=== PATIENT | male | born 1950 | race Caucasian/White ===

== ENCOUNTER → 2016-08-27 | Outpatient (CLI) | payer MEDICARE ==
[~2016-08-27] MED LIST: /CELE20CA OR; /TAMS4CA OR; /WARF25TA OR; ADVAIR; LIPITOR PO; LOVAZA PO; PERC5TAB8 OR; PERC7.5T8 OR; PROLIXIN PO; TYL325 RE; ZOLO100T OR; ZYPR10TA OR; [UNRECOGNIZED DRUG - OTHER] PO
--- NOTE | 2016-08-27 10:32 | REP ---
Clinical: Hyperlipidemia . Comparison: 07/31/2014 . Technique: PA and lateral. Findings: The mediastinum and cardiac silhouette are normal. The lung polanco are clear and without acute consolidation, effusion, or pneumothorax. The skeletal structures are intact and normal. Impression: 1. No acute cardiopulmonary process. Signed by Ruslan Cline MD 08/27/2016 10:23 A
[2016-08-27 10:40] LABS: BASO # 0.1 K/mm3 (0.0-0.2); BASO % 1.3 % (0.0-1.0); EOS # 0.2 K/mm3 (0.0-0.50); EOS % 3.4 % (0.0-3.0); LYMPH # 1.6 K/mm3 (1.5-4.5); LYMPH % 26.2 % (24.0-44.0); MEAN CORPUSCULAR HGB CONC 34.5 g/dl (32.0-36.5); MONO # 0.4 K/mm3 (0.0-0.8); NEUTROPHILS # 3.6 K/mm3 (1.8-7.7); NEUTROPHILS % 61.2 % (36.0-66.0); RED CELL DISTRIBUTION WIDTH 13.7 % (11.5-14.5); WHITE BLOOD COUNT 5.8 K/mm3 (4.0-10.0)
[2016-08-27 11:27] LABS: ALBUMIN 3.9 GM/DL (3.2-5.2); ALBUMIN/GLOBULIN RATIO 1.15 (1.00-1.93); ALKALINE PHOSPHATASE 82 U/L (45-117); ALT/SGPT 51 U/L (12-78); ANION GAP 6 MEQ/L (8-16); AST/SGOT 31 U/L (15-37); BILIRUBIN,TOTAL 0.6 MG/DL (0.2-1.0); BLOOD UREA NITROGEN 10 MG/DL (7-18); CARBON DIOXIDE LEVEL 31 MEQ/L (21-32); CHLORIDE LEVEL 105 MEQ/L (98-107); CHOLESTEROL LEVEL 135 MG/DL (<200); CREATININE FOR GFR 1.07 MG/DL (0.70-1.30); GLOMERULAR FILTRATION RATE > 60.0 (>49); GLUCOSE, FASTING 116 MG/DL (80-110); POTASSIUM SERUM 4.1 MEQ/L (3.5-5.1); SODIUM LEVEL 142 MEQ/L (136-145); TOTAL PROTEIN 7.3 GM/DL (6.4-8.2); TRIGLYCERIDES LEVEL 147 MG/DL (<150)
== END ==
LOC: M LAB 09:56
PROVIDERS: ATTEND Physician Assistant Medical
DX: E78.2 Mixed hyperlipidemia (principal); F20.9 Schizophrenia, unspecified; E55.9 Vitamin D deficiency, unspecified; J44.9 Chronic obstructive pulmonary disease, unspecified

== ENCOUNTER → 2016-12-16 | Outpatient (CLI) | payer MEDICARE ==
[2016-12-16 14:36] LABS: ALBUMIN 3.9 GM/DL (3.2-5.2); ALBUMIN/GLOBULIN RATIO 1.08 (1.00-1.93); ALKALINE PHOSPHATASE 82 U/L (45-117); ALT/SGPT 65 U/L (12-78); ANION GAP 9 MEQ/L (8-16); AST/SGOT 34 U/L (15-37); BILIRUBIN,TOTAL 0.6 MG/DL (0.2-1.0); BLOOD UREA NITROGEN 8 MG/DL (7-18); CALCIUM LEVEL 9.4 MG/DL (8.8-10.2); CARBON DIOXIDE LEVEL 30 MEQ/L (21-32); CHLORIDE LEVEL 101 MEQ/L (98-107); CREATININE FOR GFR 1.11 MG/DL (0.70-1.30); GLOMERULAR FILTRATION RATE > 60.0 (>49); GLUCOSE, FASTING 96 MG/DL (80-110); POTASSIUM SERUM 4.1 MEQ/L (3.5-5.1); SODIUM LEVEL 140 MEQ/L (136-145); TOTAL PROTEIN 7.5 GM/DL (6.4-8.2)
== END ==
LOC: M WUC 10:32
PROVIDERS: ATTEND Physician Assistant Medical
DX: R73.9 Hyperglycemia, unspecified (principal)

== ENCOUNTER → 2017-04-14 | Outpatient (CLI) | payer OTHER, MEDICARE ==
[2017-04-14 14:28] LABS: ALBUMIN 4.1 GM/DL (3.2-5.2); ALBUMIN/GLOBULIN RATIO 1.21 (1.00-1.93); ALKALINE PHOSPHATASE 87 U/L (45-117); ALT/SGPT 76 U/L (12-78); ANION GAP 10 MEQ/L (8-16); AST/SGOT 42 U/L (7-37); BILIRUBIN,TOTAL 0.8 MG/DL (0.2-1.0); BLOOD UREA NITROGEN 9 MG/DL (7-18); CALCIUM LEVEL 9.1 MG/DL (8.8-10.2); CARBON DIOXIDE LEVEL 27 MEQ/L (21-32); CHLORIDE LEVEL 104 MEQ/L (98-107); CHOLESTEROL LEVEL 132 MG/DL (<200); CHOLESTEROL RISK RATIO 3.567 (<5); CREATININE FOR GFR 1.09 MG/DL (0.70-1.30); GLOMERULAR FILTRATION RATE > 60.0 (>49); GLUCOSE, FASTING 114 MG/DL (70-100); HDL CHOLESTEROL 37 MG/DL (>40); LDL CHOLESTEROL 64.6 MG/DL (<100); NON-HDL-C 95 MG/DL; POTASSIUM SERUM 4.3 MEQ/L (3.5-5.1); SODIUM LEVEL 141 MEQ/L (136-145); TOTAL PROTEIN 7.5 GM/DL (6.4-8.2); TRIGLYCERIDES LEVEL 152 MG/DL (<150)
== END ==
LOC: M LAB 13:00
DX: R73.9 Hyperglycemia, unspecified (principal); Z79.899 Other long term (current) drug therapy
CPT/HCPCS: 80053

== ENCOUNTER → 2017-04-15 | Outpatient (CLI) | payer OTHER ==
[2017-04-15 12:09] LABS: BASO # 0.1 10^3/uL (0.0-0.2); BASO % 1.1 % (0.0-1.0); EOS # 0.2 10^3/uL (0.0-0.50); EOS % 3.2 % (0.0-3.0); HEMATOCRIT 45.6 % (42.0-52.0); HEMOGLOBIN 15.4 g/dl (14.0-18.0); IMMATURE GRANULOCYTE % 0.4 % (0-3.0); LYMPH # 1.8 10^3/uL (1.5-4.5); LYMPH % 31.4 % (24.0-44.0); MEAN CORPUSCULAR HGB CONC 33.8 g/dl (32.0-36.5); MEAN CORPUSCULAR VOLUME 88.9 fl (80.0-96.0); MONO # 0.6 10^3/uL (0.0-0.8); MONO % 10.8 % (0.0-5.0); NEUTROPHILS % 53.1 % (36.0-66.0); PLATELET COUNT, AUTOMATED 186 10^3/uL (150-450); RED BLOOD COUNT 5.13 10^6/uL (4.30-6.10); RED CELL DISTRIBUTION WIDTH 13.4 % (11.5-14.5); WHITE BLOOD COUNT 5.6 10^3/uL (4.0-10.0)
[2017-04-15 14:31] LABS: ESTIMATED AVERAGE GLUCOSE 126 MG/DL (60-110)
== END ==
LOC: M LAB 11:00
DX: R73.9 Hyperglycemia, unspecified (principal)
CPT/HCPCS: 83036

== ENCOUNTER → 2017-06-08 | Outpatient (CLI) | payer OTHER ==
[2017-06-08 16:23] LABS: BASO # 0.1 10^3/uL (0.0-0.2); BASO % 1.1 % (0.0-1.0); EOS # 0.3 10^3/uL (0.0-0.50); EOS % 4.7 % (0.0-3.0); HEMATOCRIT 48.5 % (42.0-52.0); HEMOGLOBIN 16.6 g/dl (13.5-17.5); IMMATURE GRANULOCYTE % 0.3 % (0-3.0); LYMPH # 1.8 10^3/uL (1.5-4.5); LYMPH % 24.5 % (24.0-44.0); MEAN CORPUSCULAR HEMOGLOBIN 30.2 pg (27.0-33.0); MEAN CORPUSCULAR HGB CONC 34.2 g/dl (32.0-36.5); MEAN CORPUSCULAR VOLUME 88.2 fl (80.0-96.0); MONO # 0.7 10^3/uL (0.0-0.8); MONO % 8.9 % (0.0-5.0); NEUTROPHILS # 4.4 10^3/uL (1.8-7.7); NEUTROPHILS % 60.5 % (36.0-66.0); PLATELET COUNT, AUTOMATED 193 10^3/uL (150-450); RED CELL DISTRIBUTION WIDTH 13.5 % (11.5-14.5); WHITE BLOOD COUNT 7.3 10^3/uL (4.0-10.0)
[2017-06-08 17:16] LABS: ALBUMIN 4.2 GM/DL (3.2-5.2); ALBUMIN/GLOBULIN RATIO 1.08 (1.00-1.93); ALKALINE PHOSPHATASE 96 U/L (45-117); ALT/SGPT 71 U/L (12-78); AMYLASE 34 U/L (25-115); ANION GAP 8 MEQ/L (8-16); AST/SGOT 50 U/L (7-37); BILIRUBIN,TOTAL 0.7 MG/DL (0.2-1.0); BLOOD UREA NITROGEN 7 MG/DL (7-18); CALCIUM LEVEL 9.3 MG/DL (8.8-10.2); CARBON DIOXIDE LEVEL 25 MEQ/L (21-32); CHLORIDE LEVEL 107 MEQ/L (98-107); CREATININE FOR GFR 1.11 MG/DL (0.70-1.30); GLOMERULAR FILTRATION RATE > 60.0 (>49); GLUCOSE, FASTING 98 MG/DL (70-100); LIPASE 145 U/L (73-393); POTASSIUM SERUM 4.4 MEQ/L (3.5-5.1); SODIUM LEVEL 140 MEQ/L (136-145); TOTAL PROTEIN 8.1 GM/DL (6.4-8.2)
== END ==
LOC: M WUC 15:34
DX: R10.11 Right upper quadrant pain (principal)
CPT/HCPCS: 82150

== ENCOUNTER 2017-06-26 09:17 | Day surgery (SDC) | payer OTHER ==
[2017-06-26] MEDS: NS 1,000 ML IV (10:15)
[2017-06-26] MEDS ORDERED: PROPOFOL 200 MG/20 ML VIAL As Ordered ×2 (10:54→11:04)
== END 2017-06-26 11:38 | disposition home or self-care (01) ==
LOC: M OPP 09:17
DX: Z12.11 Encounter for screening for malignant neoplasm of colon (principal); Z86.010 Personal history of colon polyps; Z80.0 Family history of malignant neoplasm of digestive organs; D12.2 Benign neoplasm of ascending colon; D12.5 Benign neoplasm of sigmoid colon; K62.1 Rectal polyp; K57.30 Diverticulosis of large intestine without perforation or abscess without bleeding; K64.8 Other hemorrhoids; E78.5 Hyperlipidemia, unspecified; K21.9 Gastro-esophageal reflux disease without esophagitis; M19.90 Unspecified osteoarthritis, unspecified site; F32.9 Major depressive disorder, single episode, unspecified; J45.909 Unspecified asthma, uncomplicated; J44.9 Chronic obstructive pulmonary disease, unspecified; G47.30 Sleep apnea, unspecified; R06.83 Snoring; Z96.641 Presence of right artificial hip joint; Z79.899 Other long term (current) drug therapy
CPT/HCPCS: 45385

== ENCOUNTER → 2018-05-05 | Outpatient (REF) | payer MEDICARE ==
[~2018-05-05] MED LIST changes: +ADV250INH INH; +ATOR1TAB19; +BENZ-52; +COMBAER6; +FLUP10TA; +OLAN10TA2; +SERT-138; +VITA-112 PO
[2018-05-05 13:20] LABS: BASO # 0.1 10^3/uL (0.0-0.2); BASO % 1.3 % (0.0-1.0); EOS # 0.4 10^3/uL (0.0-0.50); EOS % 5.9 % (0.0-3.0); HEMATOCRIT 44.4 % (42.0-52.0); HEMOGLOBIN 15.4 g/dl (13.5-17.5); LYMPH # 1.7 10^3/uL (1.5-4.5); LYMPH % 23.7 % (24.0-44.0); MEAN CORPUSCULAR HEMOGLOBIN 30.5 pg (27.0-33.0); MEAN CORPUSCULAR HGB CONC 34.7 g/dl (32.0-36.5); MEAN CORPUSCULAR VOLUME 87.9 fl (80.0-96.0); MONO # 0.5 10^3/uL (0.0-0.8); MONO % 6.8 % (0.0-5.0); NEUTROPHILS # 4.3 10^3/uL (1.8-7.7); NEUTROPHILS % 62.2 % (36.0-66.0); PLATELET COUNT, AUTOMATED 197 10^3/uL (150-450); RED BLOOD COUNT 5.05 10^6/uL (4.30-6.10)
[2018-05-05 13:41] LABS: HEMOGLOBIN A1c 5.8 %
[2018-05-05 13:47] LABS: ALT/SGPT 62 U/L (12-78); BILIRUBIN,TOTAL 0.7 MG/DL (0.2-1.0); BLOOD UREA NITROGEN 12 MG/DL (7-18); CALCIUM LEVEL 8.9 MG/DL (8.8-10.2); CARBON DIOXIDE LEVEL 28 MEQ/L (21-32); CHLORIDE LEVEL 105 MEQ/L (98-107); CHOLESTEROL LEVEL 138 MG/DL (<200); CHOLESTEROL RISK RATIO 4.058 (<5); GLOMERULAR FILTRATION RATE > 60.0 (>49); GLUCOSE, FASTING 126 MG/DL (70-100); HDL CHOLESTEROL 34 MG/DL (>40); LDL CHOLESTEROL 69 MG/DL (<100); NON-HDL-C 104 MG/DL; NT-PRO BNP 15 PG/ML (<125); POTASSIUM SERUM 4.1 MEQ/L (3.5-5.1); SODIUM LEVEL 139 MEQ/L (136-145); TOTAL PROTEIN 7.3 GM/DL (6.4-8.2); TRIGLYCERIDES LEVEL 177 MG/DL (<150)
== END ==
LOC: M SFHCPLAZ 11:36
PROVIDERS: ATTEND Family Medicine
DX: R06.09 Other forms of dyspnea (principal); F25.9 Schizoaffective disorder, unspecified; Z13.1 Encounter for screening for diabetes mellitus; E78.5 Hyperlipidemia, unspecified

== ENCOUNTER → 2018-08-23 | Outpatient (CLI) | payer MEDICARE ==
[~2018-08-23] MED LIST changes: -/CELE20CA OR; -/TAMS4CA OR; -/WARF25TA OR; +CELE1CAP4 OR; +COUM1TAB18 OR; +FLOM0.4C39 OR
--- NOTE | 2018-08-24 03:59 | REP ---
REASON: History of bronchitis. COMPARISON: Multiple, the latest 06/08/2017. Left CP angle blunting has developed since the last exam. There are a few mild bibasilar curvilinear opacities which have also developed since the last exam. The heart is not enlarged. The imaged osseous structures stable and intact. IMPRESSION: 1. Left CP angle blunting. Small pleural effusion is suspected. 2. Bibasilar opacities as described above, suggestive of subsegmental atelectatic changes; however, basilar pneumonia particularly on the left cannot be ruled out. Followup is suggested. Electronically Signed by Cirilo Sotelo DO 08/24/2018 10:55 A
== END ==
LOC: M SMT 14:25
PROVIDERS: ATTEND Physician Assistant Medical
DX: R91.8 Other nonspecific abnormal finding of lung field (principal); J40 Bronchitis, not specified as acute or chronic

== ENCOUNTER → 2018-08-23 | Outpatient (REF) | payer MEDICARE ==
[2018-08-23 17:06] LABS: ALBUMIN 3.8 GM/DL (3.2-5.2); ALT/SGPT 58 U/L (12-78); BASO # 0.1 10^3/uL (0.0-0.2); BASO % 1.7 % (0.0-1.0); BILIRUBIN,TOTAL 0.6 MG/DL (0.2-1.0); BLOOD UREA NITROGEN 9 MG/DL (7-18); CALCIUM LEVEL 8.7 MG/DL (8.8-10.2); CARBON DIOXIDE LEVEL 25 MEQ/L (21-32); CHLORIDE LEVEL 105 MEQ/L (98-107); CREATININE FOR GFR 0.95 MG/DL (0.70-1.30); EOS # 0.3 10^3/uL (0.0-0.50); EOS % 4.8 % (0.0-3.0); GLOMERULAR FILTRATION RATE > 60.0 (>49); GLUCOSE, FASTING 115 MG/DL (70-100); HEMATOCRIT 44.2 % (42.0-52.0); HEMOGLOBIN 15.1 g/dl (13.5-17.5); LYMPH # 1.9 10^3/uL (1.5-4.5); LYMPH % 27.5 % (24.0-44.0); MEAN CORPUSCULAR HEMOGLOBIN 30.1 pg (27.0-33.0); MEAN CORPUSCULAR HGB CONC 34.2 g/dl (32.0-36.5); MONO # 0.7 10^3/uL (0.0-0.8); MONO % 9.5 % (0.0-5.0); NEUTROPHILS % 56.4 % (36.0-66.0); PLATELET COUNT, AUTOMATED 221 10^3/uL (150-450); POTASSIUM SERUM 4.1 MEQ/L (3.5-5.1); RED BLOOD COUNT 5.02 10^6/uL (4.30-6.10); SODIUM LEVEL 139 MEQ/L (136-145); TOTAL PROTEIN 7.4 GM/DL (6.4-8.2); WHITE BLOOD COUNT 7.1 10^3/uL (4.0-10.0)
== END ==
LOC: M SFHCPLAZ 13:38
PROVIDERS: ATTEND Physician Assistant Medical
DX: J40 Bronchitis, not specified as acute or chronic (principal)

== ENCOUNTER 2018-08-28 18:12 | Emergency (ER) | payer MEDICARE ==
[~2018-08-28] VITALS: Ht 170.2 cm; Wt 93.6 kg
[2018-08-28 19:25] LABS: BASO # 0.1 10^3/uL (0.0-0.2); BASO % 0.8 % (0.0-1.0); EOS # 0.3 10^3/uL (0.0-0.50); EOS % 3.9 % (0.0-3.0); HEMATOCRIT 42.5 % (42.0-52.0); HEMOGLOBIN 15.1 g/dl (13.5-17.5); LYMPH # 2.2 10^3/uL (1.5-4.5); MEAN CORPUSCULAR HEMOGLOBIN 31.6 pg (27.0-33.0); MEAN CORPUSCULAR HGB CONC 35.5 g/dl (32.0-36.5); MEAN CORPUSCULAR VOLUME 88.9 fl (80.0-96.0); MONO # 0.6 10^3/uL (0.0-0.8); MONO % 7.9 % (0.0-5.0); NEUTROPHILS # 4.5 10^3/uL (1.8-7.7); NEUTROPHILS % 58.3 % (36.0-66.0); PLATELET COUNT, AUTOMATED 175 10^3/uL (150-450); RED BLOOD COUNT 4.78 10^6/uL (4.30-6.10); WHITE BLOOD COUNT 7.7 10^3/uL (4.0-10.0)
--- NOTE | 2018-08-28 19:49 | REP ---
Clinical: Cough and dyspnea . Comparison: 08/23/2018 . Technique: PA and lateral. Findings: The mediastinum and cardiac silhouette are normal. The lung polanco are clear and without acute consolidation, effusion, or pneumothorax. Previously suggested atelectasis/pneumonia has resolved. The skeletal structures are intact and normal. Impression: 1. No acute cardiopulmonary process. Electronically Signed by Ruslan Cline MD 08/28/2018 07:41 P
[2018-08-28 19:55] LABS: BLOOD UREA NITROGEN 13 MG/DL (7-18); CALCIUM LEVEL 8.5 MG/DL (8.8-10.2); CARBON DIOXIDE LEVEL 25 MEQ/L (21-32); CHLORIDE LEVEL 107 MEQ/L (98-107); CK-MB VALUE MASS 2.2 NG/ML (<3.6); CPK CREATINE PHOSPHOKINASE 116 U/L (39-308); CREATININE FOR GFR 0.96 MG/DL (0.70-1.30); GLOMERULAR FILTRATION RATE > 60.0 (>49); GLUCOSE, FASTING 95 MG/DL (70-100); POTASSIUM SERUM 3.8 MEQ/L (3.5-5.1); SODIUM LEVEL 141 MEQ/L (136-145); TROPONIN I < 0.02 NG/ML (< 0.10)
[2018-08-28] MEDS ORDERED: MUCI600T31 PO (20:23)
[2018-08-28 20:31] VITALS: BP 133/87
--- NOTE | 2018-08-29 15:35 | ECGEPIP ---
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
== END 2018-08-28 20:32 | disposition home or self-care (01) ==
LOC: M ED 18:12
DX: J06.9 Acute upper respiratory infection, unspecified (principal); J44.9 Chronic obstructive pulmonary disease, unspecified; E78.5 Hyperlipidemia, unspecified; F33.9 Major depressive disorder, recurrent, unspecified; Z79.899 Other long term (current) drug therapy; Z87.891 Personal history of nicotine dependence

== ENCOUNTER → 2018-09-21 | Outpatient (REF) | payer MEDICARE ==
[~2018-09-21] MED LIST changes: +MUCI600T31 PO
[2018-09-21 12:59] LABS: HEMOGLOBIN A1c 6.4 %
== END ==
LOC: M SFHCPLAZ 08:53
PROVIDERS: ATTEND Family Medicine
DX: R73.03 Prediabetes (principal)
CPT/HCPCS: 36415; 83036; G0463

== ENCOUNTER → 2019-03-29 | Outpatient (REF) | payer MEDICARE ==
[~2019-03-29] MED LIST changes: -FLUP10TA; +FLUP10TA11
[2019-03-29 13:07] LABS: FREE T4 1.03 NG/DL (0.76-1.46); THYROID STIMULATING HORMONE 1.57 uIU/ML (0.358-3.740)
== END ==
LOC: M SFHCPLAZ 10:19
PROVIDERS: ATTEND Family Medicine
DX: R41.3 Other amnesia (principal)
CPT/HCPCS: 36415; 82607; 84439; 84443; G0463

== ENCOUNTER → 2019-07-14 | Outpatient (REF) | payer MEDICARE ==
[2019-07-14 13:56] LABS: ALT/SGPT 28 U/L (12-78); BLOOD UREA NITROGEN 17 MG/DL (7-18); CARBON DIOXIDE LEVEL 31 MEQ/L (21-32); CHLORIDE LEVEL 105 MEQ/L (98-107); CREATININE FOR GFR 1.11 MG/DL (0.70-1.30); GLOMERULAR FILTRATION RATE > 60.0 (>49); GLUCOSE, FASTING 113 MG/DL (70-100); POTASSIUM SERUM 4.7 MEQ/L (3.5-5.1); SODIUM LEVEL 141 MEQ/L (136-145)
[2019-07-14 13:57] LABS: ALBUMIN 3.9 GM/DL (3.2-5.2); BILIRUBIN,TOTAL 0.6 MG/DL (0.2-1.0); CHOLESTEROL LEVEL 134 MG/DL (<200); HDL CHOLESTEROL 42 MG/DL (>40); LDL CHOLESTEROL 72 MG/DL (<100); NON-HDL-C 92 MG/DL; TOTAL PROTEIN 6.9 GM/DL (6.4-8.2); TRIGLYCERIDES LEVEL 101 MG/DL (<150)
== END ==
LOC: M SFHCPLAZ 11:35
PROVIDERS: ATTEND Family Medicine
DX: F25.9 Schizoaffective disorder, unspecified (principal); Z13.220 Encounter for screening for lipoid disorders; Z79.899 Other long term (current) drug therapy
CPT/HCPCS: 36415; 80053; 80061; G0463

== ENCOUNTER → 2020-07-01 | Outpatient (CLI) | payer MEDICARE ==
[~2020-07-01] MED LIST changes: +INVE234I
== END ==
LOC: M LABSMTC 08:49
PROVIDERS: ATTEND Anesthesiology
DX: Z01.818 Encounter for other preprocedural examination (principal); Z11.52 Encounter for screening for COVID-19

== ENCOUNTER 2020-07-06 08:36 | Day surgery (SDC) | payer MEDICARE ==
[~2020-07-06] VITALS: Ht 170.2 cm; Wt 89.4 kg
[~2020-07-06 08:36] MED LIST changes: +NS 1,000 ML IV ONE
[2020-07-06] MEDS ORDERED: propofoL 200 MG/20 ML VIAL As Ordered ONE ×2 (09:31→09:56)
[2020-07-06] MEDS ORDERED: LIDOCAINE 2% MDV 20ML VIAL As Ordered ONE (09:31)
--- NOTE | 2020-07-06 10:05 | ROOR ---
Patient Name: Keron Franklin Procedure Date: 07/06/2020 9:42 AM Date of : 1950 Age: 70 Room: [facility] Gender: Male Note Status: Finalized Procedure: Colonoscopy Indications: High risk colon cancer surveillance: Personal history of colonic polyps, Family history of colon cancer in a first-degree relative before age 60 years Providers: Evan Barajas MD Referring MD: John Thakkar Do Requesting Provider: Medicines: Monitored Anesthesia Care Complications: No immediate complications. Procedure: Pre-Anesthesia Assessment: - The heart rate, respiratory rate, oxygen saturations, blood pressure, adequacy of pulmonary ventilation, and response to care were monitored throughout the procedure. The Colonoscope was introduced through the anus and advanced to the terminal ileum, with identification of the appendiceal orifice and IC valve. The colonoscopy was performed without difficulty. The patient tolerated the procedure well. The quality of the bowel preparation was good. Findings: The perianal and digital rectal examinations were normal. Two sessile polyps were found in the sigmoid colon and ascending colon. The polyps were diminutive in size. These polyps were removed with a cold snare. Resection was complete, but the polyp tissue was only partially retrieved. Mild sigmoid diverticulosis and small internal hemorrhoids. The exam was otherwise without abnormality on direct and retroflexion views. Impression: - Two diminutive polyps in the sigmoid colon and in the ascending colon, removed with a cold snare. Complete resection. Partial retrieval. - Mild sigmoid diverticulosis and small internal hemorrhoids. - The examination was otherwise normal on direct and retroflexion views. Recommendation: - Repeat colonoscopy in 5 years for surveillance. Procedure Code(s): --- Professional --- 48858, Colonoscopy, flexible; with removal of tumor(s), polyp(s), or other lesion(s) by snare technique Diagnosis Code(s): --- Professional --- Z86.010, Personal history of colonic polyps K63.5, Polyp of colon Z80.0, Family history of malignant neoplasm of digestive organs CPT copyright 2019 [employer]. All rights reserved. The codes documented in this report are preliminary and upon high school music director review may be revised to meet current compliance requirements. Evan Barajas MD Evan Barajas MD 07/06/2020 10:04:27 AM Electronically signed by Evan Barajas MD Number of Addenda: 0 Note Initiated On: 07/06/2020 9:42 AM Estimated Blood Loss: Estimated blood loss: none.
[2020-07-06 10:25] VITALS: BP 110/63
== END 2020-07-06 10:35 | disposition home or self-care (01) ==
LOC: M OPP 08:36
PROVIDERS: ATTEND Internal Medicine Gastroenterology
DX: Z12.11 Encounter for screening for malignant neoplasm of colon (principal); Z86.010 Personal history of colon polyps; Z80.0 Family history of malignant neoplasm of digestive organs; K63.5 Polyp of colon; K57.30 Diverticulosis of large intestine without perforation or abscess without bleeding; K64.8 Other hemorrhoids; Z79.899 Other long term (current) drug therapy

== ENCOUNTER → 2020-08-06 | Outpatient (REF) | payer MEDICARE ==
[~2020-08-06] MED LIST changes: +ATOR1TAB19 PO; +BENZ0.5T23; +BENZ0.5T23 PO; +COMBAER6 INH; +INVE234I IM; -NS 1,000 ML IV ONE; -OLAN10TA2; +OLAN1TAB20; +ZOLO100T PO
[2020-08-06 17:23] LABS: BASO % 0.1 % (0.0-1.0); EOS % 0.1 % (0.0-3.0); HEMATOCRIT 44.3 % (42.0-52.0); HEMOGLOBIN 14.9 g/dl (13.5-17.5); LYMPH # 1.1 10^3/uL (1.5-5.0); LYMPH % 16.3 % (24.0-44.0); MEAN CORPUSCULAR HEMOGLOBIN 30.3 pg (27.0-33.0); MEAN CORPUSCULAR HGB CONC 33.6 g/dl (32.0-36.5); MONO # 0.7 10^3/uL (0.0-0.8); MONO % 9.9 % (2.0-8.0); NEUTROPHILS # 5.1 10^3/uL (1.5-8.5); NEUTROPHILS % 73.3 % (36.0-66.0); PLATELET COUNT, AUTOMATED 129 10^3/uL (150-450); RED BLOOD COUNT 4.92 10^6/uL (4.30-6.10)
[2020-08-06 17:45] LABS: ALBUMIN 3.8 GM/DL (3.2-5.2); CALCIUM LEVEL 8.4 MG/DL (8.8-10.2); CHOLESTEROL RISK RATIO 2.878 (<5); CREATININE FOR GFR 1.3 MG/DL (0.70-1.30); GLOMERULAR FILTRATION RATE 58.4 (>49); THYROID STIMULATING HORMONE 0.832 uIU/ML (0.358-3.740)
== END ==
LOC: M SFHCPLAZ 14:54
PROVIDERS: ATTEND Family Medicine
DX: E78.5 Hyperlipidemia, unspecified (principal); R53.83 Other fatigue
CPT/HCPCS: 36415; 80053; 80061; 84443; 85025; G0463

== ENCOUNTER 2020-08-09 17:27 | Emergency (ER) | payer MEDICARE ==
[~2020-08-09] VITALS: Ht 170.2 cm; Wt 91.4 kg
[~2020-08-09 17:27] MED LIST changes: -ATOR1TAB19 PO; -BENZ0.5T23; -BENZ0.5T23 PO; -COMBAER6 INH; -INVE234I IM; +OLAN10TA2; -OLAN1TAB20; -ZOLO100T PO
[2020-08-09] MEDS ORDERED: BENZ0.5T23 (17:37)
--- NOTE | 2020-08-09 18:59 | REP ---
INDICATION: FEVER COMPARISON: 08/28/2018. TECHNIQUE: PA/Lateral FINDINGS: Lungs: There is mild bibasilar fibro atelectatic change. There is no evidence of acute infiltrate. Heart: Normal in size. Mediastinum: Mediastinal silhouette unremarkable. Pleural angles: Unremarkable.. Bones and soft tissues: Unremarkable. IMPRESSION: No acute pulmonary disease. <Electronically signed by Issa Kim > 08/09/20 [id number]
[2020-08-09 19:22] LABS: BASO % 0.5 % (0.0-1.0); EOS % 0.3 % (0.0-3.0); HEMATOCRIT 39.9 % (42.0-52.0); HEMOGLOBIN 13.7 g/dl (13.5-17.5); LYMPH # 0.8 10^3/uL (1.5-5.0); MEAN CORPUSCULAR HEMOGLOBIN 29.8 pg (27.0-33.0); MEAN CORPUSCULAR HGB CONC 34.3 g/dl (32.0-36.5); MEAN CORPUSCULAR VOLUME 86.9 fl (80.0-96.0); MONO # 0.3 10^3/uL (0.0-0.8); NEUTROPHILS # 2.5 10^3/uL (1.5-8.5); NEUTROPHILS % 68.7 % (36.0-66.0); PLATELET COUNT, AUTOMATED 134 10^3/uL (150-450); RED BLOOD COUNT 4.59 10^6/uL (4.30-6.10); WHITE BLOOD COUNT 3.6 10^3/uL (4.0-10.0)
[2020-08-09] MEDS ORDERED: ACETAMINOPHEN 500 MG TAB PO ONE (20:10)
[2020-08-09 20:23] LABS: C REACTIVE PROTEIN QUANTITATIV 3.83 MG/DL (0.00-0.30); MAGNESIUM LEVEL 2.2 MG/DL (1.8-2.4)
[2020-08-09 20:42] LABS: D-DIMER QUANT 687.13 ng/ml (<500)
[2020-08-09 21:14] LABS: ALBUMIN 3.8 GM/DL (3.2-5.2); BILIRUBIN,DIRECT 0.3 MG/DL (0.0-0.2); TOTAL PROTEIN 7.1 GM/DL (6.4-8.2)
--- NOTE | 2020-08-09 21:52 | ECGEPIP ---
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
[2020-08-09] MEDS ORDERED: COMBAER6 INH (22:03)
[2020-08-09] MEDS ORDERED: INVE234I IM (22:03)
[2020-08-09] MEDS ORDERED: BENZ0.5T23 PO (22:03)
[2020-08-09] MEDS ORDERED: ATOR1TAB19 PO (22:03)
[2020-08-09] MEDS ORDERED: ZOLO100T PO (22:03)
[2020-08-09] MEDS ORDERED: NS 1,000 ML IV SCH (22:30)
[2020-08-09] MEDS ORDERED: EPINEPHrine INJ 1 MG/ML 1ML AMP IM PRN (22:30)
[2020-08-09] MEDS ORDERED: ALBUTEROL 90 MCG/ACT 8GM HFA INHALER INH PRN (22:30)
[2020-08-09] MEDS ORDERED: BAMLANIVIMAB 700 MG, ETESEVIMAB 1,400 MG in NS 250 ML IV ONE (22:30)
[2020-08-09] MEDS ORDERED: diphenhydrAMINE 50MG/ML VIAL (J1200) IV PRN (22:30)
[2020-08-09] MEDS ORDERED: ALBUTEROL SULFATE 2.5 MG/0.5 ML INH NEB SOLN INH PRN (22:30)
[2020-08-09] MEDS ORDERED: methylPREDNISolone 125MG 2ML VIAL IV PRN (22:30)
--- NOTE | 2020-08-09 23:11 | HPEPDOC ---
[facility] Medical History & Physical Date of Admission Aug 09, 2020 Date of Service: Aug 09, 2020 Primary Care Physician: TRES GONSALES DO Attending Physician: LASHELL ARELLANO MD History and Physical CHIEF COMPLAINT: , Body aches and weakness with cough HISTORY OF PRESENT ILLNESS: Mr. Frnaklin is a 70-year-old male who presented to the ER with complaints of aching all over and weakness since last . He says he would be good one day and then feel bad again the next day. He also endorses diarrhea but states he has not had any diarrhea today. Mac that he has been dizzy and has had a cough that won't go away. He is not sure if he had any fever or chills. He denies nausea or vomiting. On initial evaluation this evening. He had a temp of 102.9. Covid 19 was positive. O2 sats remained above 90% on room air even with exertion. White blood cell count was 3.6. Platelets are decreased at 134. He also had some elevation of ferritin at 581. Lactic acid improved. Calcitonin were within normal limits. D-dimer was elevated at 687. Patient also has added risk factor of a BMI greater than 30 with a history of COPD and asthma. Chest x- ray showed no acute disease. PAST MEDICAL HISTORY: 1. Chronic obstructive pulmonary disease. 2. Depression. 3. Schizophrenia. 4. Asthma. 5. Osteoarthritis. 6. Diverticulosis. 7. Obstructive sleep apnea. The patient no longer uses CPAP. 8. Hyperlipidemia. PAST SURGICAL HISTORY: 1. Colonoscopy. 2. Right hip replacement SOCIAL HISTORY: Tobacco use: Never ETOH: Has not had a drink in 4 years Illicit drug use:. Denies Patient lives with: By himself FAMILY HISTORY: Patient's mother is 93 years old and suffers from dementia. His father at 61 with colon cancer. REVIEW OF SYSTEMS: Complete 10 point review systems is negative except as noted above PHYSICAL EXAMINATION: Patient is seen in the ER, lying on the stretcher.. He is alert and oriented x 3. HEENT is WNL. Neck is supple. Lungs coarse with nonproductive cough. Heart regular rate and rhythm without murmur. Abdomen is obese, soft, non-tender to palpation with bowel sounds positive. Extremities with good ROM and strength equal bilaterally. No lower extremity edema. Pedal pulses are positive. Skin is warm and dry with no obvious rash or lesion. Neuro: grossly intact. Psych: He is pleasant and cooperative ASSESSMENT AND PLAN: 1. Covid 19. Patient is a candidate for monoclonal antibody treatment and will receive Bamlanivimab and Etesevimab. , He will require follow-up with primary care. Encourage good pulmonary toilet. Albuterol inhaler available for use as needed. 2. Depression and schizophrenia. Continue home medications including sertraline and Cogentin. He will continue Invega monthly as scheduled. 3. Chronic obstructive pulmonary disease with no acute exacerbation. Encourage good pulmonary toilet. Albuterol available as needed. Plan as outlined above. 4. Hyperlipidemia. Continue statin. Vital Signs Vital Signs Date Time Temp Pulse Resp B/P (MAP) Pulse Ox O2 Delivery O2 Flow Rate FiO2 08/09/20 22:15 70 19 134/76 (95) 93 Room Air 08/09/20 21:15 98.8 Laboratory Data Labs 24H Laboratory Tests 2 08/09/20 18:22: Immature Granulocyte % (Auto) 0.5, Neutrophils (%) (Auto) 68.7H, Lymphocytes (%) (Auto) 22.0L, Monocytes (%) (Auto) 8.0, Eosinophils (%) (Auto) 0.3, Basophils (%) (Auto) 0.5, Neutrophils # (Auto) 2.5, Lymphocytes # (Auto) 0.8L, Monocytes # (Auto) 0.3, Eosinophils # (Auto) 0.0, Basophils # (Auto) 0.0, Nucleated Red Blood Cells % (auto) 0.0, Lactic Acid Level 1.2 08/09/20 18:45: Magnesium Level 2.2, Ferritin 581H, Total Bilirubin 1.0, Direct Bilirubin 0.3H, Aspartate Amino Transf (AST/SGOT) 29, Alanine Aminotransferase (ALT/SGPT) 35, Alkaline Phosphatase 59, Lactate Dehydrogenase 226, C-Reactive Protein, Quantitative 3.83H, Total Protein 7.1, Albumin 3.8, Albumin/Globulin Ratio 1.2, Procalcitonin <0.05 08/09/20 19:05: POC Glucose (Misc Panel) 102, POC Sodium (Misc Panel) 136, POC Potassium (Misc Panel) 4.1, POC Chloride (Misc Panel) 96L, POC Total CO2 (Misc Panel) 23.0, POC Blood Urea Nitrogen (Misc Panel 10, POC Ionized Calcium (Misc Panel) 4.3L, POC Creatinine (Misc Panel) 1.1, POC Hematocrit (Misc Panel) 38.0 08/09/20 20:13: Fibrinogen 608H, D-Dimer, Quantitative 687.13H CBC/BMP Laboratory Tests 08/09/20 18:22 Microbiology Microbiology 08/09/20 Blood Culture, Received Pending 08/09/20 Respiratory Virus Panel (PCR) (GUNJAN) - Final, Complete SARS-CoV-2 (COVID 19) 08/09/20 Blood Culture, Received Pending Home Medications Scheduled Atorvastatin Calcium (Atorvastatin Calcium) 10 Mg Tablet, 10 MG PO QHS Benztropine Mesylate (Benztropine Mesylate) 0.5 Mg Tablet, 0.5 MG PO QHS Paliperidone Palmitate (Invega Sustenna) 234 Mg/1.5 Ml Syringe, 234 MG IM QMONTH Sertraline Hcl (Zoloft) 100 Mg Tablet, 100 MG PO QHS Scheduled PRN Ipratropium/Albuterol Sulfate (Combivent Respimat 20-100 Mcg) 4 Gm Mist.inhal, 1 PUFF INH QID PRN for SHORTNESS OF BREATH Allergies Coded Allergies: No Known Allergies (Verified , 06/29/20) A-FIB/CHADSVASC A-FIB History Current/History of A-Fib/PAF?: No YANIRA CARROLL Aug 09, 2020 23:11
[2020-08-09 23:45] VITALS: BP 121/72
== END 2020-08-10 00:13 | disposition home or self-care (01) ==
LOC: M ED 17:27 → CANBEDREQ 22:25 → M ED 08-10 00:13
DX: U07.1 COVID-19 (principal); J44.9 Chronic obstructive pulmonary disease, unspecified; E78.5 Hyperlipidemia, unspecified; F33.9 Major depressive disorder, recurrent, unspecified; F20.9 Schizophrenia, unspecified; G47.30 Sleep apnea, unspecified; Z79.899 Other long term (current) drug therapy

== ENCOUNTER 2020-08-09 23:58 | Outpatient (CLI) | payer MEDICARE ==
[~2020-08-09 23:58] MED LIST changes: +ALBUTEROL 90 MCG/ACT 8GM HFA INHALER INH PRN; +ALBUTEROL SULFATE 2.5 MG/0.5 ML INH NEB SOLN INH PRN; +ATOR1TAB19 PO; +BENZ0.5T23; +BENZ0.5T23 PO; +COMBAER6 INH; +EPINEPHrine INJ 1 MG/ML 1ML AMP IM PRN; +INVE234I IM; +NS 1,000 ML IV SCH; +ZOLO100T PO; +diphenhydrAMINE 50MG/ML VIAL (J1200) IV PRN; +methylPREDNISolone 125MG 2ML VIAL IV PRN
[2020-08-10] VITALS (8 sets, daily range): BP systolic 113–151; BP diastolic 66–81
[2020-08-10] MEDS ORDERED: BAMLANIVIMAB 700 MG, ETESEVIMAB 1,400 MG in NS 250 ML IV ONE (00:30)
== END 2020-08-10 04:45 | disposition home or self-care (01) ==
LOC: M OPCLIICU 23:58 → M ICU 23:58 → M OPCLIICU 08-10 00:21
PROVIDERS: ATTEND Internal Medicine
DX: U07.1 COVID-19 (principal)

== ENCOUNTER → 2021-06-28 | Outpatient (REF) | payer MEDICARE ==
[~2021-06-28] MED LIST changes: -ALBUTEROL 90 MCG/ACT 8GM HFA INHALER INH PRN; -ALBUTEROL SULFATE 2.5 MG/0.5 ML INH NEB SOLN INH PRN; -EPINEPHrine INJ 1 MG/ML 1ML AMP IM PRN; -NS 1,000 ML IV SCH; -OLAN10TA2; +OLAN1TAB20; -diphenhydrAMINE 50MG/ML VIAL (J1200) IV PRN; -methylPREDNISolone 125MG 2ML VIAL IV PRN
== END ==
LOC: M SFHCPLAZ 15:58
PROVIDERS: ATTEND Family Medicine
DX: E78.5 Hyperlipidemia, unspecified (principal); Z53.9 Procedure and treatment not carried out, unspecified reason

== ENCOUNTER → 2021-07-02 | Outpatient (CLI) | payer MEDICARE ==
[2021-07-02 10:42] LABS: CHOLESTEROL RISK RATIO 2.868 (<5)
== END ==
LOC: M WUC 08:13
PROVIDERS: ATTEND Student in an Organized Health Care Education/Training Program
DX: E78.5 Hyperlipidemia, unspecified (principal)

== ENCOUNTER → 2021-07-24 | Outpatient (CLI) | payer MEDICARE | LOC: M CARPUL 10:20 | PROVIDERS: ATTEND Student in an Organized Health Care Education/Training Program | DX: J44.9 Chronic obstructive pulmonary disease, unspecified (principal) ==

== ENCOUNTER → 2021-09-05 | Outpatient (CLI) | payer MEDICARE ==
[2021-09-05 15:31] LABS: BASO # 0.1 10^3/uL (0.0-0.2); BASO % 1.1 % (0.0-1.0); EOS # 0.1 10^3/uL (0.0-0.5); EOS % 1.8 % (0.0-3.0); HEMATOCRIT 43.6 % (42.0-52.0); HEMOGLOBIN 14.7 g/dl (13.5-17.5); LYMPH # 1.3 10^3/uL (1.5-5.0); MEAN CORPUSCULAR HGB CONC 33.7 g/dl (32.0-36.5); MONO # 0.6 10^3/uL (0.0-0.8); MONO % 8.6 % (2.0-8.0); NEUTROPHILS # 4.9 10^3/uL (1.5-8.5); NEUTROPHILS % 70.1 % (36.0-66.0); PLATELET COUNT, AUTOMATED 175 10^3/uL (150-450); WHITE BLOOD COUNT 7.1 10^3/uL (4.0-10.0)
[2021-09-05 15:59] LABS: BLOOD UREA NITROGEN 12 MG/DL (7-18); CALCIUM LEVEL 9.3 MG/DL (8.8-10.2); CARBON DIOXIDE LEVEL 30 MEQ/L (21-32); CHLORIDE LEVEL 105 MEQ/L (98-107); CREATININE FOR GFR 1.05 MG/DL (0.70-1.30); GLOMERULAR FILTRATION RATE > 60.0 (>49); GLUCOSE, FASTING 82 MG/DL (70-100); POTASSIUM SERUM 4.3 MEQ/L (3.5-5.1); SODIUM LEVEL 138 MEQ/L (136-145)
== END ==
LOC: M PLALAB 13:59
PROVIDERS: ATTEND Student in an Organized Health Care Education/Training Program
DX: J20.8 Acute bronchitis due to other specified organisms (principal)

== ENCOUNTER → 2021-09-05 | Outpatient (REF) | payer MEDICARE | LOC: M SFHCPLAZ 13:47 | PROVIDERS: ATTEND Internal Medicine Hematology | DX: J20.8 Acute bronchitis due to other specified organisms (principal) ==

== ENCOUNTER → 2022-03-31 | Outpatient (CLI) | payer MEDICARE ==
[~2022-03-31] MED LIST changes: -BENZ-52; +BENZ1TAB5; +DOXY100C3 PO; +LOPE2TAB12 PO; +OMEP40CA5 PO
== END ==
LOC: M LABSMTC 11:54
PROVIDERS: ATTEND Anesthesiology
DX: Z01.812 Encounter for preprocedural laboratory examination (principal); Z11.52 Encounter for screening for COVID-19

== ENCOUNTER 2022-04-02 07:42 | Day surgery (SDC) | payer MEDICARE ==
[~2022-04-02] VITALS: Ht 170.2 cm; Wt 96.6 kg
[~2022-04-02 07:42] MED LIST changes: +BSS IRRIG/VANCO(10MG)/TOBRA(5MG)/EPINEPH(1:1000-0.5CC)500ML BAG-ORONLY IR ONE; +CEFUROXIME 1MG/0.1ML INTRACAMERAL INJ As Ordered ONE; +CYCLOPENTOLATE 1% OPHTH SOLN 2ML BTL OD SCH; +LIDOCAINE 1% SDV 5ML VIAL As Ordered ONE; +LIDOCAINE 3.5 % 1ML OPHTH TOPICAL GEL OU ONE; +MIDAZOLAM INJ 2MG/2ML VIAL As Ordered ONE; +OFLOXACIN 0.3 % (OCUFLOX) OPTH SOL 5ML OD ONE; +PHENYLEPHRINE 10% OPHTH SOL 5ML OD PRN; +fentaNYL 100 MCG/2 ML INJECTION As Ordered ONE
[2022-04-02] MEDS: PHENYLEPHRINE 2.5% OPHTH SOL 2ML OD SCH ×2 (08:12→08:23)
[2022-04-02] MEDS: TROPICAMIDE 1% OPHTH SOLN 15ML OD SCH ×2 (08:12→08:23)
[2022-04-02 10:15] VITALS: BP 139/85
== END 2022-04-02 10:36 | disposition home or self-care (01) ==
LOC: M SDC 07:42
PROVIDERS: ATTEND Ophthalmology
DX: H25.11 Age-related nuclear cataract, right eye (principal); H57.03 Miosis; E78.00 Pure hypercholesterolemia, unspecified; R12 Heartburn; M19.90 Unspecified osteoarthritis, unspecified site; F32.A Depression, unspecified; J44.9 Chronic obstructive pulmonary disease, unspecified; J45.909 Unspecified asthma, uncomplicated; Z79.899 Other long term (current) drug therapy; Z79.2 Long term (current) use of antibiotics
CPT/HCPCS: 66982; J0697; J2250; J3010; V2632

== ENCOUNTER → 2022-04-14 | Outpatient (CLI) | payer MEDICARE ==
[~2022-04-14] MED LIST changes: -BSS IRRIG/VANCO(10MG)/TOBRA(5MG)/EPINEPH(1:1000-0.5CC)500ML BAG-ORONLY IR ONE; -CEFUROXIME 1MG/0.1ML INTRACAMERAL INJ As Ordered ONE; -CYCLOPENTOLATE 1% OPHTH SOLN 2ML BTL OD SCH; -LIDOCAINE 1% SDV 5ML VIAL As Ordered ONE; -LIDOCAINE 3.5 % 1ML OPHTH TOPICAL GEL OU ONE; -MIDAZOLAM INJ 2MG/2ML VIAL As Ordered ONE; -OFLOXACIN 0.3 % (OCUFLOX) OPTH SOL 5ML OD ONE; -PHENYLEPHRINE 10% OPHTH SOL 5ML OD PRN; -fentaNYL 100 MCG/2 ML INJECTION As Ordered ONE
== END ==
LOC: M LABSMTC 11:59
PROVIDERS: ATTEND Anesthesiology
DX: Z01.812 Encounter for preprocedural laboratory examination (principal); Z11.52 Encounter for screening for COVID-19

== ENCOUNTER 2022-04-16 08:13 | Day surgery (SDC) | payer MEDICARE ==
[~2022-04-16] VITALS: Ht 170.2 cm; Wt 95.7 kg
[~2022-04-16 08:13] MED LIST changes: +BSS IRRIG/VANCO(10MG)/TOBRA(5MG)/EPINEPH(1:1000-0.5CC)500ML BAG-ORONLY IR ONE; +CEFUROXIME 1MG/0.1ML INTRACAMERAL INJ As Ordered ONE; +CYCLOPENTOLATE 1% OPHTH SOLN 2ML BTL OS SCH; +LIDOCAINE 1% SDV 5ML VIAL As Ordered ONE; +LIDOCAINE 3.5 % 1ML OPHTH TOPICAL GEL OU ONE; +OFLOXACIN 0.3 % (OCUFLOX) OPTH SOL 5ML OS ONE; +PHENYLEPHRINE 10% OPHTH SOL 5ML OS PRN; +PHENYLEPHRINE 2.5% OPHTH SOL 2ML OS SCH; +TROPICAMIDE 1% OPHTH SOLN 15ML OS SCH
[2022-04-16] MEDS ORDERED: MIDAZOLAM INJ 2MG/2ML VIAL As Ordered ONE (10:05)
[2022-04-16] MEDS ORDERED: fentaNYL 100 MCG/2 ML INJECTION As Ordered ONE (10:05)
[2022-04-16 10:50] VITALS: BP 135/77
== END 2022-04-16 11:04 | disposition home or self-care (01) ==
LOC: M SDC 08:13
PROVIDERS: ATTEND Ophthalmology
DX: H25.12 Age-related nuclear cataract, left eye (principal); J06.9 Acute upper respiratory infection, unspecified; E78.00 Pure hypercholesterolemia, unspecified; K21.9 Gastro-esophageal reflux disease without esophagitis; J45.909 Unspecified asthma, uncomplicated; F32.A Depression, unspecified; J44.9 Chronic obstructive pulmonary disease, unspecified; M17.0 Bilateral primary osteoarthritis of knee; Z79.899 Other long term (current) drug therapy; Z79.2 Long term (current) use of antibiotics
CPT/HCPCS: 66984; J0697; J2250; J3010; V2632

== ENCOUNTER 2022-05-28 09:16 | Emergency (ER) | payer MEDICARE ==
[~2022-05-28] VITALS: Ht 170.2 cm; Wt 96.6 kg
[~2022-05-28 09:16] MED LIST changes: -BSS IRRIG/VANCO(10MG)/TOBRA(5MG)/EPINEPH(1:1000-0.5CC)500ML BAG-ORONLY IR ONE; -CEFUROXIME 1MG/0.1ML INTRACAMERAL INJ As Ordered ONE; -CYCLOPENTOLATE 1% OPHTH SOLN 2ML BTL OS SCH; -LIDOCAINE 1% SDV 5ML VIAL As Ordered ONE; -LIDOCAINE 3.5 % 1ML OPHTH TOPICAL GEL OU ONE; -OFLOXACIN 0.3 % (OCUFLOX) OPTH SOL 5ML OS ONE; -PHENYLEPHRINE 10% OPHTH SOL 5ML OS PRN; -PHENYLEPHRINE 2.5% OPHTH SOL 2ML OS SCH; -TROPICAMIDE 1% OPHTH SOLN 15ML OS SCH
[2022-05-28] MEDS ORDERED: COMBIVENT RESPIMAT 100-20MCG INHALER 4GM INH ONE (12:25)
[2022-05-28] MEDS ORDERED: BENZ200C70 PO (13:39)
[2022-05-28] MEDS ORDERED: COMBAER6 INH (13:42)
[2022-05-28 13:52] VITALS: BP 164/86
== END 2022-05-28 14:02 | disposition home or self-care (01) ==
LOC: M ED 09:16
DX: J44.0 Chronic obstructive pulmonary disease with (acute) lower respiratory infection (principal); J20.9 Acute bronchitis, unspecified; J90 Pleural effusion, not elsewhere classified; Z79.899 Other long term (current) drug therapy

== ENCOUNTER → 2022-07-29 | Outpatient (CLI) | payer MEDICARE, MEDICAID ==
[~2022-07-29] MED LIST changes: +BENZ0.5T2; +BENZ0.5T2 PO; -BENZ0.5T23; -BENZ0.5T23 PO; +BENZ200C70 PO
[2022-07-29 18:34] LABS: BASO # 0.1 10^3/uL (0.0-0.2); BASO % 0.9 % (0.0-1.0); EOS # 0.2 10^3/uL (0.0-0.5); EOS % 3.4 % (0.0-3.0); HEMATOCRIT 42.8 % (42.0-52.0); HEMOGLOBIN 14.2 g/dl (13.5-17.5); LYMPH # 1.5 10^3/uL (1.5-5.0); LYMPH % 24.8 % (24.0-44.0); MEAN CORPUSCULAR HEMOGLOBIN 30.3 pg (27.0-33.0); MEAN CORPUSCULAR HGB CONC 33.2 g/dl (32.0-36.5); MEAN CORPUSCULAR VOLUME 91.3 fl (80.0-96.0); MONO # 0.7 10^3/uL (0.0-0.8); MONO % 12.3 % (2.0-8.0); NEUTROPHILS # 3.4 10^3/uL (1.5-8.5); NEUTROPHILS % 58.4 % (36.0-66.0); PLATELET COUNT, AUTOMATED 148 10^3/uL (150-450); RED BLOOD COUNT 4.69 10^6/uL (4.30-6.10); WHITE BLOOD COUNT 5.9 10^3/uL (4.0-10.0)
[2022-07-29 19:07] LABS: ALBUMIN 4.1 G/DL (3.2-5.2); ALKALINE PHOSPHATASE 63 U/L (46-116); ALT/SGPT 43 U/L (7.0-40); AST/SGOT 19 U/L (<34); BILIRUBIN,TOTAL 0.6 MG/DL (0.3-1.2); BLOOD UREA NITROGEN 17 MG/DL (9-23); CALCIUM LEVEL 9.3 MG/DL (8.3-10.6); CARBON DIOXIDE LEVEL 30 MMOL/L (20-31); CHLORIDE LEVEL 104 MMOL/L (98-107); GLOMERULAR FILTRATION RATE > 60.0 (>42); GLUCOSE, FASTING 71 MG/DL (74-106); POTASSIUM SERUM 4.2 MMOL/L (3.5-5.1); SODIUM LEVEL 141 MMOL/L (136-145); TOTAL PROTEIN 6.9 G/DL (5.7-8.2)
== END ==
LOC: M PLAIMG 16:03
PROVIDERS: ATTEND Student in an Organized Health Care Education/Training Program
DX: R05.1 Acute cough (principal); R09.89 Other specified symptoms and signs involving the circulatory and respiratory systems

== ENCOUNTER → 2022-08-15 | Outpatient (REF) | payer MEDICARE, MEDICAID, OTHER | LOC: M SFHCPLAZ 16:56 | PROVIDERS: ATTEND Student in an Organized Health Care Education/Training Program | DX: R05.3 Chronic cough (principal) ==

== ENCOUNTER → 2022-08-18 | Outpatient (REF) | payer OTHER | LOC: M SFHCPLAZ 15:38 | PROVIDERS: ATTEND Family Medicine | DX: R05.3 Chronic cough (principal) ==

== ENCOUNTER → 2022-11-12 | Outpatient (CLI) | payer MEDICARE, MEDICAID | LOC: M RAD 10:51 | PROVIDERS: ATTEND Nurse Practitioner Adult Health | DX: R91.8 Other nonspecific abnormal finding of lung field (principal) ==

== ENCOUNTER → 2022-11-19 | Outpatient (REF) | payer MEDICARE, MEDICAID, OTHER | LOC: M LAB REF 12:59 | PROVIDERS: ATTEND Nurse Practitioner Adult Health | DX: J47.9 Bronchiectasis, uncomplicated (principal) ==

== ENCOUNTER → 2023-01-06 | Outpatient (CLI) | payer MEDICARE, MEDICAID ==
[~2023-01-06] MED LIST changes: +METHACHOLINE KIT INH ONE
== END ==
LOC: M CARPUL 14:29
PROVIDERS: ATTEND Nurse Practitioner Adult Health
DX: R06.02 Shortness of breath (principal)
CPT/HCPCS: 94070; 95070; J7674

== ENCOUNTER → 2023-07-06 | Outpatient (CLI) | payer MEDICARE, MEDICAID ==
[~2023-07-06] MED LIST changes: +INVE156I; +LIDO5DIS41 TOP; -METHACHOLINE KIT INH ONE
[2023-07-06 18:28] LABS: BASO % 0.3 % (0.0-1.0); EOS % 0.3 % (0.0-3.0); HEMATOCRIT 40.8 % (42.0-52.0); HEMOGLOBIN 13.8 g/dl (13.5-17.5); LYMPH # 1.5 10^3/uL (1.5-5.0); LYMPH % 12.9 % (24.0-44.0); MEAN CORPUSCULAR HEMOGLOBIN 30.6 pg (27.0-33.0); MEAN CORPUSCULAR HGB CONC 33.8 g/dl (32.0-36.5); MEAN CORPUSCULAR VOLUME 90.5 fl (80.0-96.0); MONO # 1.1 10^3/uL (0.0-0.8); MONO % 9.9 % (2.0-8.0); NEUTROPHILS # 8.7 10^3/uL (1.5-8.5); NEUTROPHILS % 76.3 % (36.0-66.0); PLATELET COUNT, AUTOMATED 162 10^3/uL (150-450); RED BLOOD COUNT 4.51 10^6/uL (4.30-6.10); WHITE BLOOD COUNT 11.4 10^3/uL (4.0-10.0)
[2023-07-06 19:00] LABS: BLOOD UREA NITROGEN 10 MG/DL (9-23); CALCIUM LEVEL 9.1 MG/DL (8.3-10.6); CARBON DIOXIDE LEVEL 29 MMOL/L (20-31); CHLORIDE LEVEL 101 MMOL/L (98-107); CREATININE FOR GFR 1.04 MG/DL (0.70-1.30); GLOMERULAR FILTRATION RATE > 60.0 (>42); GLUCOSE, FASTING 94 MG/DL (74-106); POTASSIUM SERUM 4.1 MMOL/L (3.5-5.1); SODIUM LEVEL 138 MMOL/L (136-145)
== END ==
LOC: M PLALAB 15:30
PROVIDERS: ATTEND Student in an Organized Health Care Education/Training Program
DX: K12.1 Other forms of stomatitis (principal); L03.211 Cellulitis of face

== ENCOUNTER 2023-08-07 15:34 | Emergency (ER) | payer MEDICARE, MEDICAID ==
[~2023-08-07] VITALS: Ht 170.2 cm; Wt 93.2 kg
[~2023-08-07 15:34] MED LIST changes: -INVE156I; -LIDO5DIS41 TOP
[2023-08-07] MEDS ORDERED: INVE156I (16:02)
[2023-08-07 22:13] VITALS: BP 135/72; TEMP 98.9; O2SAT 93
[2023-08-07] MEDS ORDERED: LIDO5DIS41 TOP (22:39)
[2023-08-07 22:46] VITALS: O2SAT 98
[2023-08-10] MEDS ORDERED: BREO1INH INH (12:11)
[2023-08-10] MEDS ORDERED: ALBU8.5H INH (12:11)
== END 2023-08-07 23:00 | disposition home or self-care (01) ==
LOC: M ED 15:34
DX: S76.191A Other specified injury of right quadriceps muscle, fascia and tendon, initial encounter (principal); Y92.019 Unspecified place in single-family (private) house as the place of occurrence of the external cause; Y93.9 Activity, unspecified; Y99.9 Unspecified external cause status; W19.XXXA Unspecified fall, initial encounter; J45.909 Unspecified asthma, uncomplicated; E78.5 Hyperlipidemia, unspecified; Z79.899 Other long term (current) drug therapy

== ENCOUNTER 2023-08-11 10:11 | Day surgery (SDC) | payer MEDICARE, MEDICAID ==
[~2023-08-11] VITALS: Ht 170.2 cm; Wt 96.0 kg
[~2023-08-11 10:11] MED LIST changes: +ALBU8.5H INH; +BREO1INH INH; +INVE156I; +LIDO5DIS41 TOP
[2023-08-11] MEDS: LR 1,000 ML IV SCH (11:20)
[2023-08-11] MEDS ORDERED: LIDOCAINE 2% 100MG/5ML SDV (FOR ANES.) As Ordered ONE (12:06)
[2023-08-11] MEDS ORDERED: propofoL 200 MG/20 ML VIAL As Ordered ONE (12:06)
[2023-08-11] MEDS ORDERED: MORPHINE 10 MG/ML 1ML VIAL As Ordered ONE (13:32)
[2023-08-11] MEDS: ceFAZolin SOD 2 GM in IV 1 EA IV ONE (13:39)
[2023-08-11] MEDS ORDERED: ACETAMINOPHEN 1000MG 100ML IV BAG As Ordered ONE (14:25)
[2023-08-11] MEDS ORDERED: KETOROLAC 60MG 2ML VIAL As Ordered ONE (14:27)
[2023-08-11] MEDS ORDERED: ONDANSETRON 4MG 2ML VIAL As Ordered ONE (14:28)
[2023-08-11] MEDS ORDERED: LR 1,000 ML IV SCH (14:30)
[2023-08-11] MEDS ORDERED: ONDANSETRON 4MG 2ML VIAL IV PRN (14:30)
[2023-08-11] MEDS ORDERED: METOCLOPRAMIDE INJ 10MG/2ML VIAL IV PRN (14:30)
[2023-08-11] MEDS ORDERED: fentaNYL 100 MCG/2 ML INJECTION IV PRN (14:30)
[2023-08-11] MEDS ORDERED: HYDROMORPHONE HCL 0.5 MG/ 0.5 ML SYRINGE IV PRN (14:30)
[2023-08-11] MEDS ORDERED: TRAM50TA2 PO (14:49)
[2023-08-11] MEDS ORDERED: ECOT81TA5 PO (14:49)
[2023-08-11] MEDS: oxyCODONE 5MG TAB PO PRN (15:12)
[2023-08-11 16:05] VITALS: BP 180/90; TEMP 98.6; O2SAT 99
== END 2023-08-11 16:26 | disposition home or self-care (01) ==
LOC: M SDC 10:11
PROVIDERS: ATTEND Orthopaedic Surgery
DX: S76.111A Strain of right quadriceps muscle, fascia and tendon, initial encounter (principal); X50.0XXA Overexertion from strenuous movement or load, initial encounter; Y93.9 Activity, unspecified; I10 Essential (primary) hypertension; J44.9 Chronic obstructive pulmonary disease, unspecified; E78.00 Pure hypercholesterolemia, unspecified; Z79.899 Other long term (current) drug therapy; Z79.51 Long term (current) use of inhaled steroids; Z88.5 Allergy status to narcotic agent; Z88.8 Allergy status to other drugs, medicaments and biological substances; K21.9 Gastro-esophageal reflux disease without esophagitis
CPT/HCPCS: 27385; C1751; J0131; J0665; J0690; J1100; J1885; J2405

== ENCOUNTER → 2023-08-26 | Outpatient (CLI) | payer MEDICARE, MEDICAID ==
[~2023-08-26] MED LIST changes: +ECOT81TA5 PO; +TRAM50TA2 PO
== END ==
LOC: M SOG 09:07
PROVIDERS: ATTEND Physician Assistant
DX: Z53.9 Procedure and treatment not carried out, unspecified reason (principal)

== ENCOUNTER → 2023-09-04 | Outpatient (REF) | payer MEDICARE, MEDICAID | LOC: M LAB REF 16:03 | PROVIDERS: ATTEND Physician Assistant | DX: B34.9 Viral infection, unspecified (principal) ==

== ENCOUNTER → 2023-11-05 | Outpatient (REF) | payer MEDICARE, MEDICAID | LOC: M LAB REF 11:07 | PROVIDERS: ATTEND Nurse Practitioner Adult Health | DX: J47.9 Bronchiectasis, uncomplicated (principal) ==

== ENCOUNTER → 2024-03-08 | Outpatient (REF) | payer MEDICARE ==
[~2024-03-08] MED LIST changes: -ADV250INH INH; +ADVA1AER9 INH
== END ==
LOC: M SFHCPLAZ 20:24
PROVIDERS: ATTEND Family Medicine
DX: K21.9 Gastro-esophageal reflux disease without esophagitis (principal); E78.5 Hyperlipidemia, unspecified; F25.9 Schizoaffective disorder, unspecified; Z79.899 Other long term (current) drug therapy; Z53.9 Procedure and treatment not carried out, unspecified reason

== ENCOUNTER → 2024-03-31 | Outpatient (CLI) | payer MEDICARE ==
[2024-03-31 12:52] LABS: BASO % 0.6 % (0.0-1.0); EOS % 0.2 % (0.0-3.0); HEMATOCRIT 46.5 % (42.0-52.0); HEMOGLOBIN 15.6 g/dl (13.5-17.5); LYMPH # 0.6 10^3/uL (1.5-5.0); LYMPH % 11.3 % (24.0-44.0); MEAN CORPUSCULAR HEMOGLOBIN 30.4 pg (27.0-33.0); MEAN CORPUSCULAR HGB CONC 33.5 g/dl (32.0-36.5); MEAN CORPUSCULAR VOLUME 90.5 fl (80.0-96.0); MONO # 0.7 10^3/uL (0.0-0.8); MONO % 14.5 % (2.0-8.0); NEUTROPHILS # 3.8 10^3/uL (1.5-8.5); NEUTROPHILS % 73.2 % (36.0-66.0); PLATELET COUNT, AUTOMATED 114 10^3/uL (150-450); RED BLOOD COUNT 5.14 10^6/uL (4.30-6.10); WHITE BLOOD COUNT 5.1 10^3/uL (4.0-10.0)
[2024-03-31 13:28] LABS: ALKALINE PHOSPHATASE 78 U/L (40-129); ALT/SGPT 35 U/L (7.0-40); AST/SGOT 28 U/L (<34); BILIRUBIN,TOTAL 0.9 MG/DL (0.3-1.2); BLOOD UREA NITROGEN 11 MG/DL (9-23); CALCIUM LEVEL 9.3 MG/DL (8.3-10.6); CARBON DIOXIDE LEVEL 28 MMOL/L (20-31); CHLORIDE LEVEL 103 MMOL/L (98-107); CREATININE FOR GFR 1.12 MG/DL (0.70-1.30); GLOMERULAR FILTRATION RATE > 60.0 (>42); GLUCOSE, FASTING 91 MG/DL (74-106); POTASSIUM SERUM 4.4 MMOL/L (3.5-5.1); SODIUM LEVEL 141 MMOL/L (136-145); TOTAL PROTEIN 7.2 G/DL (5.7-8.2)
== END ==
LOC: M PLAIMG 10:25
PROVIDERS: ATTEND Physician Assistant Medical
DX: J10.1 Influenza due to other identified influenza virus with other respiratory manifestations (principal); R06.02 Shortness of breath

== ENCOUNTER → 2024-03-31 | Outpatient (REF) | payer MEDICARE | LOC: M SFHCPLAZ 12:23 | PROVIDERS: ATTEND Physician Assistant Medical | DX: J06.9 Acute upper respiratory infection, unspecified (principal) ==

== ENCOUNTER → 2024-05-16 | Day surgery (SDC) | payer MEDICARE, MEDICAID ==
[~2024-05-16] VITALS: Ht 170.2 cm; Wt 87.4 kg
[~2024-05-16] MED LIST changes: +CIDE250T PO; +CYAN500T14 PO; +GINK1CAP PO; +LIDOCAINE 2% 100MG/5ML SDV (FOR ANES.) As Ordered ONE; +META28.32 PO; +VIT PO; +VITA-243 PO; +ZINC50TA4 PO; +[UNRECOGNIZED DRUG - CODE] PO; +propofoL 200 MG/20 ML VIAL As Ordered ONE
[2024-05-16 13:08] VITALS: TEMP 97.8
[2024-05-16 13:23] VITALS: BP 112/63; O2SAT 97
== END | disposition home or self-care (01) ==
LOC: M OPP 11:49
PROVIDERS: ATTEND Surgery
DX: D12.6 Benign neoplasm of colon, unspecified (principal); K62.7 Radiation proctitis; K57.30 Diverticulosis of large intestine without perforation or abscess without bleeding; Z86.0100 Personal history of colon polyps, unspecified; G47.30 Sleep apnea, unspecified; Z88.5 Allergy status to narcotic agent; Z88.8 Allergy status to other drugs, medicaments and biological substances; Z79.51 Long term (current) use of inhaled steroids; Z79.899 Other long term (current) drug therapy; J47.9 Bronchiectasis, uncomplicated; F25.9 Schizoaffective disorder, unspecified

== ENCOUNTER → 2024-05-24 | Outpatient (REF) | payer MEDICARE, MEDICAID ==
[~2024-05-24] MED LIST changes: -LIDOCAINE 2% 100MG/5ML SDV (FOR ANES.) As Ordered ONE; -propofoL 200 MG/20 ML VIAL As Ordered ONE
== END ==
LOC: M SFHCPLAZ 16:34
PROVIDERS: ATTEND Student in an Organized Health Care Education/Training Program
DX: J21.9 Acute bronchiolitis, unspecified (principal)

== ENCOUNTER → 2024-06-07 | Outpatient (CLI) | payer MEDICARE, MEDICAID | LOC: M PLAIMG 11:58 | PROVIDERS: ATTEND Nurse Practitioner Adult Health | DX: J45.41 Moderate persistent asthma with (acute) exacerbation (principal) ==

== ENCOUNTER → 2024-12-09 | Outpatient (REF) | payer MEDICARE, MEDICAID ==
[~2024-12-09] MED LIST changes: +LIDO1ADH93 TOP; -LIDO5DIS41 TOP; +ZINC50TA37 PO; -ZINC50TA4 PO
== END ==
LOC: M SFHCPLAZ 09:44
DX: J06.9 Acute upper respiratory infection, unspecified (principal)

== ENCOUNTER → 2025-01-18 | Outpatient (CLI) | payer MEDICARE, MEDICAID ==
[2025-01-18 13:40] LABS: BASO # 0.1 10^3/uL (0.0-0.2); BASO % 1.0 % (0.0-1.0); EOS # 0.1 10^3/uL (0.0-0.5); EOS % 0.7 % (0.0-3.0); LYMPH # 1.9 10^3/uL (1.5-5.0); LYMPH % 26.9 % (24.0-44.0); MONO # 0.7 10^3/uL (0.0-0.8); MONO % 9.2 % (2.0-8.0); NEUTROPHILS # 4.4 10^3/uL (1.5-8.5); NEUTROPHILS % 61.8 % (36.0-66.0); PLATELET COUNT, AUTOMATED 199 10^3/uL (150-450)
[2025-01-18 14:01] LABS: ESTIMATED AVERAGE GLUCOSE 117.0 MG/DL (60-110)
[2025-01-18 14:05] LABS: TOTAL 25(OH) VITAMIN D 64.8 NG/ML (20.0-100.0)
[2025-01-18 14:08] LABS: ALT/SGPT 38.0 U/L (7.0-40); AST/SGOT 25.0 U/L (<34); CALCIUM LEVEL 9.3 MG/DL (8.3-10.6); CARBON DIOXIDE LEVEL 30.0 MMOL/L (20-31); CHLORIDE LEVEL 101.0 MMOL/L (98-107); CHOLESTEROL LEVEL 115.0 MG/DL (<200); CHOLESTEROL RISK RATIO 2.63 (<5); CREATININE FOR GFR 0.96 MG/DL (0.70-1.30); GLOMERULAR FILTRATION RATE 84.0 (>42); LDL CHOLESTEROL 33.2 MG/DL (<100); NON-HDL-C 71.4 MG/DL; POTASSIUM SERUM 4.5 MMOL/L (3.5-5.1); SODIUM LEVEL 141.0 MMOL/L (136-145); TRIGLYCERIDES LEVEL 191.0 MG/DL (<150)
== END ==
LOC: M PLALAB 11:52
DX: Z13.820 Encounter for screening for osteoporosis (principal); Z13.1 Encounter for screening for diabetes mellitus; E78.5 Hyperlipidemia, unspecified; Z79.899 Other long term (current) drug therapy

== ENCOUNTER → 2025-02-06 | Outpatient (CLI) | payer MEDICARE, MEDICAID | LOC: M WHC 09:19 | DX: Z13.820 Encounter for screening for osteoporosis (principal); M85.852 Other specified disorders of bone density and structure, left thigh ==